=== PATIENT | female | born 1975 | race Asian ===

== ENCOUNTER 2019-05-12 14:27 | Emergency (ER) | payer SELFPAY ==
[~2019-05-12] VITALS: Ht 165.1 cm; Wt 54.4 kg
[2019-05-12 14:28] VITALS: Ht 165.1 cm; Wt 54.4 kg
[2019-05-12 16:01] LABS: BASOPHIL % 0 % (0-2); RED CELL DISTRIBUTION WIDTH 17.3 % (11.5-14.5)
[2019-05-12 16:39] LABS: CALCIUM 8.3 mg/dL (8.5-10.1); CARBON DIOXIDE 21.8 mmol/L (21-32); CHLORIDE SERUM 108 mmol/L (98-107); CREATININE SERUM 0.7 mg/dL (0.6-1.0); GFR1 > 60 mL/min; GLUCOSE SERUM 105 mg/dL (74-106); POTASSIUM SERUM 3.9 mmol/L (3.5-5.1); SODIUM SERUM 142 mmol/L (136-145)
[2019-05-12 16:45] LABS: ALBUMIN 3.6 g/dL (3.4-5.0); BILIRUBIN TOTAL 0.21 mg/dL (0.20-1.00); TOTAL PROTEIN, SERUM 6.7 g/dL (6.4-8.2)
[2019-05-12 16:46] LABS: ALKALINE PHOSPHATASE 63 U/L (46-116); ALT/SGPT 13 U/L (14-59)
[2019-05-12 16:47] LABS: PLATELET COUNT 508 x10^3mcL (130-400)
[2019-05-12 19:54] VITALS: BP 112/69
== END 2019-05-12 19:55 | disposition home or self-care (01) ==
LOC: ED 14:27
PROVIDERS: Emergency Medicine
DX: N20.0 Calculus of kidney (principal)
CPT/HCPCS: J1885; J2270; J2405; J7030; Q0092